=== PATIENT | female | born 1970 | race Hispanic/Latino ===

== ENCOUNTER 2025-01-22 20:27 | Emergency (ER) | payer OTHER ==
[2025-01-22 21:33] LABS: Influenza A Ag Negative; Influenza B Ag Negative; SARS-CoV-2 Antigen Rapid Res Negative (Negative)
--- NOTE | 2025-01-22 22:31 | RAD REPORT ---
EXAMINATION: TWO VIEW CHEST XR CLINICAL INDICATION: Female, 54 years old. [facility] MAIN CHEST PAIN Bed Name: [facility] TECHNIQUE: 2 view radiographs of the chest were performed. COMPARISON: 04/11/2014 FINDINGS: Streaky left midlung opacity could reflect atelectasis or mild pneumonia. No pneumothorax or sizable effusion. The heart is normal in size. Mediastinal contours are unremarkable. IMPRESSION: Streaky left midlung opacity could reflect atelectasis or mild pneumonia.
[2025-01-22] MEDS ORDERED: ACETAMINOPHEN 500 MG TAB ONE (22:32)
[2025-01-22] MEDS ORDERED: IBUPROFEN 400 MG TAB ONE (22:33)
[2025-01-22] MEDS ORDERED: GUAIFENESIN/DM 5 ML UCUP ONE (22:33)
[2025-01-22] MEDS ORDERED: BENZONATATE 100 MG CAP PO ONE (22:33)
[2025-01-22 23:08] LABS: Absolute Eosinophils 0.4 K/uL (0-0.5); Absolute Lymphocytes (CBC) 1.5 K/uL (0.7-4.9); Absolute Monocytes 0.6 K/uL (0.1-1.3); Absolute Neutrophil 6.3 K/uL (1.8-8.0); Basophils % 0.4 % (0-1.3); Eosinophils % 4.1 % (0-4.4); Hematocrit 40.1 % (36.0-45.0); Hemoglobin 13.9 g/dL (12.0-15.0); Lymphocytes % 16.5 % (15.3-44.8); MCH 30.9 pg (27.0-35.0); MCHC 34.7 g/dL (32.0-36.0); MCV 89.1 fL (80-100); MPV 8.4 fL (7.6-11.3); Monocytes % 7.2 % (3.3-12.3); Neutrophils % 71.8 % (41.7-73.7); Nucleated Red Blood Cells % 0.1 % (0-0); Platelets 274 thou/uL (152-406); Red Cell Distribution Width 13.9 % (12.1-15.2)
[2025-01-22 23:23] LABS: Albumin 3.8 g/dL (3.4-5.0); Albumin/Globulin Ratio 0.8 (1.1-1.8); Anion Gap 7.6 mEq/L (5.0-15.0); Bilirubin Total 0.8 mg/dL (0.2-1.0); Globulin 4.7 g/dL (2.3-3.5); Potassium 3.6 mEq/L (3.5-5.1); Protein, Total 8.5 g/dL (6.4-8.2)
--- NOTE | 2025-01-22 23:31 | EDPHYS ---
Physician Documentation [facility] Name: Ale León Age: 54 yrs Sex: Female : 1970 Arrival Date: 01/22/2025 Time: 20:27 Bed 12 Private MD: ED Physician Stewart Stein HPI: 01/22 20:40 This 54 yrs old Female presents to ER via Unassigned with complaints of Flu sp4 Symptoms, Wheezing > 1 Year, Cough. 01/23 20:08 54-year-old female presents with persistent cough, wheezing, and congestion. Overall sp4 feeling unwell.. 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 - Infectious Disease History:: Denies. - Social history:: Smoking status: Patient denies any tobacco usage or history of. - Family history:: not pertinent. ROS: 01/23 20:08 Constitutional: Positive for fever, cough, wheezing. sp4 All other systems are negative, Exam: 20:08 Constitutional: This is a well developed, well nourished patient who is awake, alert, sp4 and in no acute distress. Head/Face: Normocephalic, atraumatic. Eyes: Pupils equal round and reactive to light, extra-ocular motions intact. Lids and lashes normal. Conjunctiva and sclera are not injected. Cornea within normal limits. Periorbital areas with no swelling, redness, or edema. ENT: Nares patent. No nasal discharge, no septal abnormalities noted. Tympanic membranes are normal and external auditory canals are clear. Oropharynx with no redness, swelling, or masses, exudates, or evidence of obstruction, uvula midline. Mucous membranes moist. Neck: Trachea midline, no thyromegaly or masses palpated, and no cervical lymphadenopathy. Supple, full range of motion without nuchal rigidity, or vertebral point tenderness. Chest/axilla: Normal chest wall appearance and motion. Nontender with no deformity. No lesions are appreciated. Cardiovascular: Regular rate and rhythm with a normal S1 and S2. No gallops, murmurs, or rubs. Normal PMI, no JVD. No pulse deficits. Respiratory: Lungs have equal breath sounds bilaterally, clear to auscultation and percussion. No rales, rhonchi or wheezes noted. No increased work of breathing, no retractions or nasal flaring. No wheezing auscultated at this time Abdomen/GI: Soft, with normal bowel sounds. No distension or tympany. No guarding or rebound. No evidence of tenderness throughout. Back: No spinal tenderness. No costovertebral tenderness. Skin: Warm, dry with normal turgor. Normal color with no rashes, no lesions, and no evidence of cellulitis. MS/ Extremity: Pulses equal, no cyanosis. Neurovascular intact. Full, normal range of motion. Neuro: Awake and alert, GCS 15, oriented to person, place, time, and situation. Cranial nerves II-XII grossly intact. Motor strength 5/5 in all extremities. Sensory grossly intact. Psych: Awake, alert, with orientation to person, place and time. Behavior, mood, and affect are within normal limits Vital Signs: 01/22 20:49 BP 158 / 93; Pulse 91; Resp 18; Temp 98.4; Pulse Ox 98% ; Weight 90.72 kg; Height 5 ft. me1 3 in. ; Pain 0/10; 20:49 Body Mass Index 35.43 (90.72 kg, 160.02 cm) me1 20:49 Pain Scale: Adult me1 [place] Coma Score: 01/23 20:08 Eye Response: spontaneous(4). Motor Response: obeys commands(6). Verbal Response: sp4 oriented(5). Total: 15. MDM: 01/22 22:26 Medical Screening Exam initiated sp4 23:28 ED course: EXAMINATION: TWO VIEW CHEST XR CLINICAL INDICATION: Female, 54 years old. sp4 [facility] MAIN CHEST PAIN Bed Name: [facility] TECHNIQUE: 2 view radiographs of the chest were performed. COMPARISON: 04/11/2014 FINDINGS: Streaky left midlung opacity could reflect atelectasis or mild pneumonia. No pneumothorax or sizable effusion. The heart is normal in size. Mediastinal contours are unremarkable. IMPRESSION: Streaky left midlung opacity could reflect atelectasis or mild pneumonia. Reported By: Pato Duran . 23:29 Differential diagnosis: acute asthma, exercise-induced asthma, URI, foreign body. Data sp4 reviewed: vital signs, nurses notes, radiologic studies, plain films. Consideration of Admission/Observation Escalation of care including admission/observation considered. ED course: X-ray revealed left midlung opacification consistent with developing pneumonia. Patient will be prescribed levofloxacin, albuterol, dextromethorphan, ondansetron, ibuprofen. Patient also reported some wheezing will prescribe prednisone as well.. 01/23 20:08 Antibiotic administration: Levaquin PO provided. sp4 01/22 20:43 Order name: CBC with Diff; Complete Time: 23:18 sp4 01/22 20:43 Order name: CMP; Complete Time: 23:27 sp4 01/22 20:43 Order name: COVID-19 Ag + Flu A+B Ag; Complete Time: 23:18 sp4 01/22 20:54 Order name: Chest Pa And Lat (2 Views) XRAY; Complete Time: 23:18 sp4 01/22 20:43 Order name: IV Saline Lock; Complete Time: 22:48 sp4 01/22 20:43 Order name: Labs collected and sent; Complete Time: 22:48 sp4 Administered Medications: 01/22 22:47 Drug: Tessalon Perle PO 200 mg PO once Route: PO; br2 23:15 Follow up: Response: No adverse reaction br2 22:48 Drug: Dextromethorphan-Guaifenesin PO Liquid 10 mg-100 mg/5 mL 20 ml PO once Route: PO; br2 23:15 Follow up: Response: No adverse reaction br2 22:48 Drug: Ibuprofen PO 800 mg PO once Route: PO; br2 23:15 Follow up: Response: No adverse reaction br2 22:48 Drug: Acetaminophen PO 1000 mg PO once Route: PO; br2 23:15 Follow up: Response: No adverse reaction br2 23:57 Drug: LevOfloxacin PO 750 mg PO once Route: PO; br2 01/23 00:01 Follow up: Response: No adverse reaction br2 01/22 23:57 Drug: Albuterol Inhalation 2.5 mg Inhalation once Route: Inhalation; br2 23:57 Drug: predniSONE PO 60 mg PO once Route: PO; br2 01/23 00:05 Follow up: Response: No adverse reaction br2 Disposition: 20:11 Chart complete. sp4 Disposition Summary: 01/22/25 23:31 Discharge Ordered Notes: Location: Home sp4 Problem: new sp4 Symptoms: have improved sp4 Condition: Stable sp4 Diagnosis - Other pneumonia, unspecified organism sp4 - Acute respiratory illness, acute febrile illness, left midlung pneumonia sp4 Followup: sp4 - With: Private Physician - When: 7 - 10 days - Reason: Recheck today's complaints Discharge Instructions: - Discharge Summary Sheet sp4 - Community-Acquired Pneumonia, Adult sp4 Forms: - Prescription Opioid Use sp4 Prescriptions: - Nebulizer with adult mask - 0 Dispense 1 nebulizer with adult mask, use as directed with albuterol; ; sp4 Refills: 0, Product Selection Permitted - dextromethorphan-guaifenesin 20-400 mg Oral tablet - take 1 tablet ORAL route every 6 hours PRN cough; 60 tablet; Refills: 0, sp4 Product Selection Permitted - prednisone 20 mg Oral tablet - take 1 tablet ORAL route daily for 10 days; 10 tablet; Refills: 0, Product sp4 Selection Permitted - Ibuprofen 800 mg Oral Tablet - take 1 tablet ORAL route every 8 hours As needed take with food; 30 tablet; sp4 Refills: 0, Product Selection Permitted - Albuterol Sulfate 2.5 mg /3 mL (0.083 %) Inhalation Solution for Nebulization - inhale 1 unit NEBULIZATION route every 4 hours As needed PRN wheezing , sp4 dispense 50 vials; 50 unit; Refills: 0, Product Selection Permitted - levofloxacin 750 mg Oral tablet - take 1 tablet ORAL route once daily; 7 tablet; Refills: 0, Product Selection sp4 Permitted Signatures: Dispatcher [employer] EDStewart Heard MD MD sp4 Madonna Garibay RN RN me1 Lalita Merida RN RN br2 Corrections: (The following items were deleted from the chart) 01/22 20:54 20:54 Chest Pa And Lat (2 Views)+[email or web address] ordered. EDMS EDMS
--- NOTE | 2025-01-22 23:31 | ER ---
Nurse's Notes [facility] Name: Ale León Age: 54 yrs Sex: Female : 1970 Arrival Date: 01/22/2025 Time: 20:27 Bed 12 Private MD: Diagnosis: Other pneumonia, unspecified organism;Acute respiratory illness, acute febrile illness, left midlung pneumonia Presentation: 01/22 20:49 Chief complaint: Patient states: cough, congestion, sore throat, bilateral ear pain, me1 fatigue, body aches, chills starting . Coronavirus screen: Vaccine status: Patient reports being unvaccinated. Ebola Screen: No symptoms or risks identified at this time. Initial Sepsis Screen: Does the patient meet any 2 criteria? No. Patient's initial sepsis screen is negative. Does the patient have a suspected source of infection? No. Patient's initial sepsis screen is negative. Risk Assessment: Do you want to hurt yourself or someone else? Patient reports no desire to harm self or others. Onset of symptoms was January 17, 2025. 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 - Infectious Disease History:: Denies. - Social history:: Smoking status: Patient denies any tobacco usage or history of. - Family history:: not pertinent. Screenin:49 [facility] ED Fall Risk Assessment (Adult) History of falling in the last 3 months, br2 including since admission Confusion or Disorientation No (0 pts) Intoxicated or Sedated No (0 pts) Impaired Gait No (0 pts) Mobility Assist Device Used No (0 pt) Altered Elimination No (0 pt) Score/Fall Risk Level 0 - 2 = Low Risk Oriented to surroundings. Abuse screen: Denies threats or abuse. Denies injuries from another. Nutritional screening: No deficits noted. Tuberculosis screening: No symptoms or risk factors identified. Assessment: 20:46 Reassessment: Patient and/or family updated on plan of care and expected duration. Pain br2 level reassessed. Patient is alert, oriented x 3, equal unlabored respirations, skin warm/dry/pink. General: Appears in no apparent distress. comfortable, Behavior is calm, cooperative. Pain: Denies pain. Complains of pain in forehead Pain currently is 8 out of 10 on a pain scale. Cardiovascular: Capillary refill < 3 seconds. Respiratory: Airway is patent Respiratory effort is even, unlabored, Respiratory pattern is regular, symmetrical. Vital Signs: 20:49 BP 158 / 93; Pulse 91; Resp 18; Temp 98.4; Pulse Ox 98% ; Weight 90.72 kg; Height 5 ft. me1 3 in. ; Pain 0/10; 20:49 Body Mass Index 35.43 (90.72 kg, 160.02 cm) me1 20:49 Pain Scale: Adult me1 [place] Coma Score: 01/23 20:08 Eye Response: spontaneous(4). Motor Response: obeys commands(6). Verbal Response: sp4 oriented(5). Total: 15. ED Course: 01/22 20:33 Patient arrived in ED. im 20:40 Stewart Stein MD is Attending Physician. sp4 20:49 Patient has correct armband on for positive identification. Provided Education on: PLAN br2 OF CARE. 20:52 Triage completed. me1 20:52 Arm band placed on Patient placed in waiting room. me1 20:53 COVID-19 Ag + Flu A+B Ag Sent. me1 20:53 COVID swab sent to lab. Flu and/or RSV swab sent to lab. me1 21:17 Chest Pa And Lat (2 Views) XRAY In Process Unspecified. EDMS 22:48 CBC with Diff Sent. br2 22:48 CMP Sent. br2 23:03 Lalita Merida, RN is Primary Nurse. br2 01/23 00:05 No provider procedures requiring assistance completed. IV discontinued, intact, br2 bleeding controlled, No redness/swelling at site. Pressure dressing applied. Administered Medications: 01/22 22:47 Drug: Tessalon Perle PO 200 mg PO once Route: PO; br2 23:15 Follow up: Response: No adverse reaction br2 22:48 Drug: Dextromethorphan-Guaifenesin PO Liquid 10 mg-100 mg/5 mL 20 ml PO once Route: PO; br2 23:15 Follow up: Response: No adverse reaction br2 22:48 Drug: Ibuprofen PO 800 mg PO once Route: PO; br2 23:15 Follow up: Response: No adverse reaction br2 22:48 Drug: Acetaminophen PO 1000 mg PO once Route: PO; br2 23:15 Follow up: Response: No adverse reaction br2 23:57 Drug: LevOfloxacin PO 750 mg PO once Route: PO; br2 01/23 00:01 Follow up: Response: No adverse reaction br2 01/22 23:57 Drug: Albuterol Inhalation 2.5 mg Inhalation once Route: Inhalation; br2 23:57 Drug: predniSONE PO 60 mg PO once Route: PO; br2 01/23 00:05 Follow up: Response: No adverse reaction br2 Outcome: 01/22 23:31 Discharge ordered by . sp4 01/23 00:05 Discharged to home ambulatory, br2 Condition: good Discharge instructions given to patient, Instructed on discharge instructions, follow up and referral plans. Demonstrated understanding of instructions, follow-up care, medications, Prescriptions given X 6 00:15 Patient left the ED. br2 Signatures: Dispatcher [employer] Stewart Cohen MD MD sp4 Julisa Sinclair Michelle RN RN me1 Lalita Merida RN RN br2
[2025-01-22] MEDS ORDERED: levoFLOXacin 750 MG TAB ONE (23:53)
[2025-01-22] MEDS ORDERED: predniSONE 20 MG TAB ONE (23:53)
[2025-01-22] MEDS ORDERED: ALBUTEROL 2.5 MG/3 ML NEB SOL ONE (23:53)
[2025-01-23 00:22] VITALS: BP 158/93; TEMP 98.4; O2SAT 98
== END 2025-01-23 00:15 | disposition home or self-care (01) ==
LOC: ER 20:27
DX: J18.8 Other pneumonia, unspecified organism (principal); Z11.52 Encounter for screening for COVID-19
CPT/HCPCS: 85025; 36415; 80053; 71046; 99284; 87428; J7512; J7613